=== PATIENT | male | born 1960 | race American Indian/Alaskan Native ===

== ENCOUNTER 2016-12-22 17:12 | Outpatient (CLI) | payer OTHER | END 2016-12-22 17:13 | disposition home or self-care (01) | LOC: LAB 17:12 → LABHHL 17:12 → LAB 17:13 | PROVIDERS: ATTEND Internal Medicine Gastroenterology | DX: Z12.11 Encounter for screening for malignant neoplasm of colon (principal) | CPT/HCPCS: 88305 ==